=== PATIENT | female | born 1980 ===

== ENCOUNTER 2023-09-10 10:32 | Outpatient (CLI) | payer BC, SELFPAY ==
--- NOTE | ~2023-09-10 | XR_ITS ---
Left Shoulder Technique: AP and scapular Y views were obtained. Clinical History: Pain Findings: No fracture or dislocation is seen. Osseous alignment is anatomic. The glenohumeral and acr omioclavicular joint spaces are preserved. Soft tissues are unremarkable. Impression: Unremarkable left shoulder radiographs. Reviewed, dictated and finalized at [facility]. Impression: Unremarkable left shoulder radiographs.
== END 2023-09-10 10:33 | disposition home or self-care (01) ==
PROVIDERS: PCP Nurse Practitioner Adult Health; Visit Provider Nurse Practitioner Adult Health
DX: M25.512 Pain in left shoulder (principal)
CPT/HCPCS: 73030

== ENCOUNTER 2023-10-19 13:51 | Outpatient (CLI) | payer BC, SELFPAY ==
--- NOTE | ~2023-10-19 | MR_ITS ---
MRI of the left shoulder Technique: Axial proton-density fat-sat images, coronal proton density fat-sat and T2 fat-sat images, and sagittal T1-weighted and T2 fat-sat images were acquired. Clinical History: Enthesopathy Findings: There is mild AC joint degenerative change. Coracoclavicular, coracoacromial, and coracohum eral ligaments appear intact. Supraspinatus and infraspinatus tendons are intact, with mild tendinosis. No partial or full-thicknes s tear. Subscapularis tendon intact, with mild tendinosis. Tendon of long head of the biceps is intac t. No labral tear evident. There is mild increased signal of the inferior glenohumeral ligament, which is otherwise intact. Ther e is minimal glenohumeral joint effusion, without significant degenerative change. No fluid distentio n of the subacromial/subdeltoid bursa. No muscle atrophy or edema. There is mild infiltration of subc oracoid fat. Impression: Findings suggestive of mild adhesive capsulitis. Correlate clinically. Mild rotator cuff tendinosis. Mild AC joint degenerative change. Reviewed, dictated and finalized at location . Impression: Findings suggestive of mild adhesive capsulitis. Correlate clinically. Mild rotator cuff tendinosis. Mild AC joint degenerative change.
== END 2023-10-19 13:52 ==
PROVIDERS: PCP Nurse Practitioner Adult Health; Visit Provider Nurse Practitioner Adult Health
DX: M77.8 Other enthesopathies, not elsewhere classified (principal); M19.012 Primary osteoarthritis, left shoulder
CPT/HCPCS: 73221